=== PATIENT | male | born 1985 | race Caucasian/White ===

== ENCOUNTER 2024-06-02 19:13 | Inpatient (IN) | payer OTHER, SELFPAY ==
[2024-06-02 19:30] VITALS: BP 147/89; PULSE 58; RESP 16; TEMP 36.4; O2SAT 96
[2024-06-02 19:35] VITALS: BMI 21.1
--- NOTE | 2024-06-03 03:09 | PC.ADMIT ---
Sd is a 38 y/o male who was admitted to [facility] at 1930 from [facility] on a CV for treatment of depression and adjustment disorder.? Per crisis and evaluation and pt. Pt was admitted d/t SI w/ an intentional OD. Pt denied that it was an SI attempt but rather ?just wanted to sleep for 2 days after a bad day?.? Pt took 20 300mg of gabapentin and 6 50 mg trazodone, no charcoal was given at the hospital.? Pt was lethargic but was arousable. Pt was A&Ox4. Pt was pleasant, calm and cooperative with the admission process.Pt reported SI attempt was d/t increasing depression. Pt K+ level 3.4. Recent stressors include a daughter going back home to her mother, recent job loss from being arrested d/t prior warrants, and having to walk a long distance after being released from senior living. Mood is variable. Affect is sad. Pt denied AVH. Thought process was linear, regular prosody of speech. Pt denied SI or HI at this time. Focus was normal. Current smoker, reports smoking a pack a day. Pt reported daily marijuana use. Tox Screen was positive for cannabis and cocaine. Last use of cocaine was 2 days ago. Pt has a hx of nephrolithiasis. Pt has a hx of trauma which induces nightmares, hypervigilance and avoidance. Pt EKG was normal sinus rhythm and a QTC of 482. Pt was placed on 15 checks for safety. Pt was cooperative with skin check, no visible wounds or bruises. NKA. Pt would like to be set up with a psychiatric provider once d/c.
[2024-06-03 07:00] VITALS: BMI 21.0
[2024-06-03 07:58] VITALS: BP 128/75; PULSE 49; RESP 16; TEMP 36.9; O2SAT 97
[2024-06-03] MEDS: Gabapentin 300 MG CAPSULE PO ×2 (09:13→15:54)
[2024-06-03] MEDS: Multivitamin TABLET 1 TAB PO (09:13)
[2024-06-03 09:22] LABS: Estimated Average Glucose 94 mg/dL; Hemoglobin A1c % 4.9 % (<6.0)
[2024-06-03] MEDS: Nicotine 21 MG PATCH.TD24 TRANSDERMA (09:33)
[2024-06-03 09:36] LABS: Cholesterol 149 mg/dL (<200); HDL Cholesterol 45 mg/dL (>40); LDL Cholesterol Calculated 82 mg/dL (<100); Magnesium 2.1 mg/dL (1.6-2.6); Triglycerides 110 mg/dL (<150)
[2024-06-03 09:52] LABS: Free T4 (Free Thyroxine) 0.85 ng/dL (0.71-1.85); Thyroid Stimulating Hormone 1.14 uIU/mL (0.32-4.0)
[2024-06-03 10:04] LABS: Folate 5.4 ng/mL (> or = 4.0); Vitamin B12 282 pg/mL (200-900)
[2024-06-03] MEDS: Sertraline HCL 25 MG TABLET PO (15:54)
--- NOTE | 2024-06-03 16:01 | P.CONHOSP_ITS ---
History of Present Illness Data of Consult Service Date: 06/03/24 Primary Care Provider: Unknown Physician HPI Reason for consult: Admission H&P Pt is a 38-year-old male with a PMH significant for recurrent nephrolithiasis, right shoulder tendenitis, hx of bradycardia, polysubstance use disorder, hx of intubation in 07/2023?due to extreme agitation after toxic ingestion of amitriptyline, PTSD, and depression who is admitted to psychiatry unit for increasing depression with SI. Patient presented to [facility] ED after reported intentional overdose of 20 tablets of 300 mg gabapentin and 6 tablets of 50 mg trazodone. Medical consult for admission H&P. Patient currently denies any acute medical complaints at this time. No shortness a breath or difficulty breathing. Denies chest pain/pressure palpitations. No fever, chills, nausea, vomiting, abdominal pain. No headache or acute vision changes. Denies flank or lower back pain. No dysuria or polyuria. Reports regularly follows with PCP, last visit 3 months ago. Review of Systems Review of Systems: Patient has no acute medical complaints at this time [facility] Medical History (Updated 06/03/24 @ 17:03 by JUAN LUIS Thomas) Bradycardia Polysubstance use disorder Left shoulder tendinitis Depression PTSD (post-traumatic stress disorder) Recurrent nephrolithiasis Social History Household Members: Family Housing: Apartment Do you presently have visiting nurse or other home services: No Patient Tobacco Use Status: Current everyday Tobacco user Tobacco use type: Cigarette Cigarette Packs Per Day: 1 Cigarettes Per Day: 20.0 Smoked in Last 30 Days: Yes e-Cigarette/Vaping Use: Never Used Patient Interested in Nicotine Replacement: Yes Patient Given Instructions on How to Stop Smoking: Yes Date Education Initiated: 06/03/24 Second Hand Smoke Exposure: No Use of substances other than those prescribed or required for medical reasons: Yes Substance Use Type: Crack/Cocaine and Prescription Drugs Substance Use Frequency: Occasionally Last Used Substance: Days (ago) Currently Displaying Signs/Symptoms of Drug Intoxication Withdrawal: No Any prior treatment program specific to substance use: Yes Have you been hit, kicked, punched, or otherwise hurt by someone within the past year? If so, by whom?: No Do you feel safe in your current relationship?: No Current Relationship Is there a partner from a previous relationship who is making you feel unsafe now?: No Are you made to feel afraid or neglected: No Advance Directives: No Advance Directives Information Provided: No Do you have thoughts of harming others: None Do you have a plan to hurt others: No Plan Recently lost weight without trying: Unsure Eating poorly because of decreased appetite: No Nutrition Risks: No Nutritional Risk Poor oral hygiene: No Meds Allergies Allergy/AdvReac Type Severity Reaction Status Date / Time No Known Allergies Allergy Verified 06/02/24 21:07 Active Medications: Current Medications Acetaminophen (Acetaminophen 325 Mg Tablet) 650 mg PO Q6H PRN PRN Reason: Headache/Pain Mild Scale (1-3) Al Hydroxide/Mg Hydroxide (Magnesium Hydrox/Alum Hydrox 30 Ml Oral.Susp) 30 ml PO Q6H PRN PRN Reason: Heartburn/Nausea Gabapentin (Gabapentin 300 Mg Capsule) 300 mg PO TID [facility] Last Admin: 06/03/24 15:54 Dose: 300 mg Hydroxyzine HCl (Hydroxyzine Hcl 25 Mg Tablet) 25 mg PO Q6H PRN PRN Reason: Anxiety Magnesium Hydroxide (Milk Of Magnesia 30 Ml Oral.Susp) 30 ml PO DAILY PRN PRN Reason: Constipation Multivitamins/Vitamin C (Multivitamin Tablet) 1 tab PO DAILY [facility] Last Admin: 06/03/24 09:13 Dose: 1 tab Nicotine (Nicotine 21 Mg Patch.Td24) 21 mg TRANSDERMA DAILY PRN PRN Reason: nicotine cravings Last Admin: 06/03/24 09:33 Dose: 21 mg Nicotine Polacrilex (Nicotine Polacrilex 2 Mg Gum) 4 mg BUCCAL Q2H PRN PRN Reason: Nicotine Cravings Non-Formulary Medication (Cetirizine-Pseudoephedrine) 1 tab PO BID [facility] Sertraline HCl (Sertraline Hcl 50 Mg Tablet) 50 mg PO DAILY [facility] Trazodone HCl (Trazodone Hcl 50 Mg Tablet) 50 mg PO BEDTIME [facility] Home Medications ?Medication ?Instructions ?Recorded ?Confirmed ?Last Taken ?Type cetirizine 5 mg-pseudoephedrine ER 1 tab PO BID 06/02/24 06/02/24 06/01/24 History 120 mg tablet,extended release,12hr gabapentin 300 mg capsule 300 mg PO TID 06/02/24 06/02/24 06/01/24 History multivitamin 1 tab PO DAILY 06/02/24 06/02/24 06/01/24 History trazodone 50 mg tablet 50 mg PO BEDTIME 06/02/24 06/02/24 06/01/24 History Physical Exam Vital Signs and Narrative: Vital Signs: Last Vital Signs Temp 98.4 F 06/03/24 07:58 Pulse 49 L 06/03/24 07:58 Resp 16 06/03/24 07:58 BP 128/75 06/03/24 07:58 Pulse Ox 97 06/03/24 07:58 O2 Del Method Room Air 06/03/24 07:58 BMI result Body Mass Index 21.0 General: AOx3, no acute distress Resp: CTA bilaterally CVS: S1, S2, regular rate, bradicardic GI: +BS, NT, no distention Skin: Warm, dry Neuro: Cranial nerves II-XII grossly intact bilaterally. Motor grossly intact bilaterally Extremities: No edema Results Labs Labs: Laboratory Results - last 24 hr 06/03/24 08:54 Estimat Average Glucose 94 Hemoglobin A1c % 4.9 Magnesium 2.1 Triglycerides 110 Cholesterol 149 LDL Cholesterol, Calc 82 HDL Cholesterol 45 Vitamin B12 282 Folate 5.4 TSH 1.14 Free T4 0.85 Assessment and Plan (1) Medical clearance for psychiatric admission: Status: Acute Plan Pt is a 38-year-old male with a PMH significant for recurrent nephrolithiasis, right shoulder tendenitis, hx of bradycardia, polysubstance use disorder, hx of intubation in 07/2023?due to extreme agitation after toxic ingestion of amitriptyline, PTSD, and depression who is admitted to M3 psychiatry unit for increasing depression with SI. Patient presented to [facility] ED after reported intentional overdose of 20 tablets of 300 mg gabapentin and 6 tablets of 50 mg trazodone. Medical consult for admission H&P. Mood disorder Plan as per psychiatry Right shoulder tendonitis Continue gabapentin Polysubstance use disorder Reports last used cocaine 3 days ago Plan as per Psychiatry Insomnia Continue trazodone Thank you for allowing us to participate in the care of this patient. Signing off at this time. Please re-consult if any acute complaints or issues arise.
[2024-06-03 19:42] VITALS: BP 134/73; PULSE 50; RESP 16; TEMP 37; O2SAT 99
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
[2024-06-03] MEDS: hydrOXYzine HCL 25 MG TABLET PO (21:34)
[2024-06-03] MEDS: Acetaminophen 325 MG TABLET 650 MG PO (21:34)
[2024-06-04 07:50] VITALS: BP 132/86; PULSE 46; RESP 14; TEMP 36.6; O2SAT 98
[2024-06-04] MEDS: Sertraline HCL 50 MG TABLET PO (09:22)
[2024-06-04] MEDS: Multivitamin TABLET 1 TAB PO (09:22)
[2024-06-04] MEDS: Nicotine 21 MG PATCH.TD24 TRANSDERMA (09:29)
--- NOTE | 2024-06-04 17:41 | P.PNPSI_ITS ---
Subjective Subjective Date of Service: 06/04/24 Reason For Visit: Opiois use disorder, PTSD Interim History: poor sleep 2/2 snoring roommate. would like to restart trazodone, also given a repeat PRN. no other requests or complaints. per staff, slept all NOC. no notable events or behaviors. Mental Status Exam Mental Status Exam Narrative: adequately dressed and groomed, restless, cooperative. guttural tics. speech nml rate, amount, loudness, latency. abnormality in speech 2/2 of dentures. thoughts linear and logical without paranoia or delusions. affect constricted, normo-intense, non-labile. mood all right. denies SI/SIBI/HI/AVH. Diagnostics Vital Signs (24Hr): Vital Signs - 24 hr 06/03/24 19:42 06/04/24 07:50 Temperature 98.6 F 97.8 F Pulse Rate 50 46 L Respiratory Rate 16 14 Blood Pressure 134/73 132/86 Pulse Oximetry 99 98 Oxygen Delivery Method Room Air Room Air BMI result Body Mass Index 21.0 Labs Labs: Laboratory Results - last 48 hr 06/03/24 08:54 Estimat Average Glucose 94 Hemoglobin A1c % 4.9 Magnesium 2.1 Triglycerides 110 Cholesterol 149 LDL Cholesterol, Calc 82 HDL Cholesterol 45 Vitamin B12 282 Folate 5.4 TSH 1.14 Free T4 0.85 Medications Medications Current Medications Acetaminophen (Acetaminophen 325 Mg Tablet) 650 mg PO Q6H PRN PRN Reason: Headache/Pain Mild Scale (1-3) Last Admin: 06/03/24 21:34 Dose: 650 mg Al Hydroxide/Mg Hydroxide (Magnesium Hydrox/Alum Hydrox 30 Ml Oral.Susp) 30 ml PO Q6H PRN PRN Reason: Heartburn/Nausea Gabapentin (Gabapentin 300 Mg Capsule) 300 mg PO TID [facility] Last Admin: 06/03/24 15:54 Dose: 300 mg Hydroxyzine HCl (Hydroxyzine Hcl 25 Mg Tablet) 25 mg PO Q6H PRN PRN Reason: Anxiety Last Admin: 06/03/24 21:34 Dose: 25 mg Magnesium Hydroxide (Milk Of Magnesia 30 Ml Oral.Susp) 30 ml PO DAILY PRN PRN Reason: Constipation Multivitamins/Vitamin C (Multivitamin Tablet) 1 tab PO DAILY [facility] Last Admin: 06/04/24 09:22 Dose: 1 tab Nicotine (Nicotine 21 Mg Patch.Td24) 21 mg TRANSDERMA DAILY PRN PRN Reason: nicotine cravings Last Admin: 06/04/24 09:29 Dose: 21 mg Nicotine Polacrilex (Nicotine Polacrilex 2 Mg Gum) 4 mg BUCCAL Q2H PRN PRN Reason: Nicotine Cravings Sertraline HCl (Sertraline Hcl 50 Mg Tablet) 50 mg PO DAILY [facility] Last Admin: 06/04/24 09:22 Dose: 50 mg Trazodone HCl (Trazodone Hcl 50 Mg Tablet) 50 mg PO BEDTIME [facility] Trazodone HCl (Trazodone Hcl 50 Mg Tablet) 50 mg PO BEDTIME PRN PRN Reason: insomnia Allergies Allergies Allergy/AdvReac Type Severity Reaction Status Date / Time No Known Allergies Allergy Verified 06/02/24 21:07 Assessment & Plan Assessment & Plan (1) Chronic post-traumatic stress disorder (PTSD): Status: Acute Code(s): F43.12 - Post-traumatic stress disorder, chronic (2) Depressive disorder: Status: Acute Code(s): F32.A - Depression, unspecified (3) Opioid use disorder: Status: Acute Code(s): F11.90 - Opioid use, unspecified, uncomplicated (4) Cocaine use disorder: Status: Acute Code(s): F14.10 - Cocaine abuse, uncomplicated (5) Nicotine use disorder: Status: Acute Code(s): F17.200 - Nicotine dependence, unspecified, uncomplicated Plan 06/03: continue home medications. start SSRI - sertraline. refer for outpt mental health services. T/C neuroleptic for tic disorder. 06/04: pt reports tic is a response to dry throat caused by dentures, never had it prior to dentures. no questions or complaints, content to continue on present regimen with aftercare referrals. Reason for continued inpatient stay Substantial Risk for: harm to self, inability to function and rapid decompensation Time Spent With Patient Time: Total time managing care of this patient today __25__ minutes.
[2024-06-04 19:58] VITALS: BP 143/80; PULSE 48; RESP 16; TEMP 37; O2SAT 98
[2024-06-04] MEDS: hydrOXYzine HCL 25 MG TABLET PO (22:14)
[2024-06-04] MEDS: traZODone HCL 50 MG TABLET PO (22:14)
[2024-06-05] MEDS: Multivitamin TABLET 1 TAB PO (09:07)
[2024-06-05] MEDS: Sertraline HCL 50 MG TABLET PO (09:07)
[2024-06-05] MEDS: Nicotine 21 MG PATCH.TD24 TRANSDERMA (09:09)
--- NOTE | 2024-06-05 17:32 | P.PNPSI_ITS ---
Subjective Subjective Date of Service: 06/05/24 Reason For Visit: Opiois use disorder, PTSD Interim History: calm, cooperative. no complaints or requests. agreeable to DC friday. per staff, isolative, poor sleep. disengaged. slept 10 hours but says he did not sleep well. Mental Status Exam Mental Status Exam Narrative: adequately dressed and groomed, restless, cooperative. guttural tics. speech nml rate, amount, loudness, latency. abnormality in speech 2/2 of dentures. thoughts linear and logical without paranoia or delusions. affect constricted, normo-intense, non-labile. mood all right. denies SI/SIBI/HI/AVH. Diagnostics Vital Signs (24Hr): Vital Signs - 24 hr 06/04/24 19:58 Temperature 98.6 F Pulse Rate 48 L Respiratory Rate 16 Blood Pressure 143/80 H Pulse Oximetry 98 Oxygen Delivery Method Room Air BMI result Body Mass Index 21.0 Medications Medications Current Medications Acetaminophen (Acetaminophen 325 Mg Tablet) 650 mg PO Q6H PRN PRN Reason: Headache/Pain Mild Scale (1-3) Last Admin: 06/03/24 21:34 Dose: 650 mg Al Hydroxide/Mg Hydroxide (Magnesium Hydrox/Alum Hydrox 30 Ml Oral.Susp) 30 ml PO Q6H PRN PRN Reason: Heartburn/Nausea Gabapentin (Gabapentin 300 Mg Capsule) 300 mg PO TID [facility] Last Admin: 06/03/24 15:54 Dose: 300 mg Hydroxyzine HCl (Hydroxyzine Hcl 25 Mg Tablet) 25 mg PO Q6H PRN PRN Reason: Anxiety Last Admin: 06/04/24 22:14 Dose: 25 mg Magnesium Hydroxide (Milk Of Magnesia 30 Ml Oral.Susp) 30 ml PO DAILY PRN PRN Reason: Constipation Multivitamins/Vitamin C (Multivitamin Tablet) 1 tab PO DAILY [facility] Last Admin: 06/05/24 09:07 Dose: 1 tab Nicotine (Nicotine 21 Mg Patch.Td24) 21 mg TRANSDERMA DAILY PRN PRN Reason: nicotine cravings Last Admin: 06/05/24 09:09 Dose: 21 mg Nicotine Polacrilex (Nicotine Polacrilex 2 Mg Gum) 4 mg BUCCAL Q2H PRN PRN Reason: Nicotine Cravings Sertraline HCl (Sertraline Hcl 50 Mg Tablet) 50 mg PO DAILY [facility] Last Admin: 06/05/24 09:07 Dose: 50 mg Trazodone HCl (Trazodone Hcl 50 Mg Tablet) 50 mg PO BEDTIME [facility] Last Admin: 06/04/24 22:14 Dose: 50 mg Trazodone HCl (Trazodone Hcl 50 Mg Tablet) 50 mg PO BEDTIME PRN PRN Reason: insomnia Allergies Allergies Allergy/AdvReac Type Severity Reaction Status Date / Time No Known Allergies Allergy Verified 06/02/24 21:07 Assessment & Plan Assessment & Plan (1) Chronic post-traumatic stress disorder (PTSD): Status: Acute Code(s): F43.12 - Post-traumatic stress disorder, chronic (2) Depressive disorder: Status: Acute Code(s): F32.A - Depression, unspecified (3) Opioid use disorder: Status: Acute Code(s): F11.90 - Opioid use, unspecified, uncomplicated (4) Cocaine use disorder: Status: Acute Code(s): F14.10 - Cocaine abuse, uncomplicated (5) Nicotine use disorder: Status: Acute Code(s): F17.200 - Nicotine dependence, unspecified, uncomplicated Plan 06/03: continue home medications. start SSRI - sertraline. refer for outpt mental health services. T/C neuroleptic for tic disorder. 06/04: pt reports tic is a response to dry throat caused by dentures, never had it prior to dentures. no questions or complaints, content to continue on present regimen with aftercare referrals. 06/05: c/o poor sleep again. feeling comfortable with present plan, however. planning to DC friday. Reason for continued inpatient stay Substantial Risk for: harm to self Time Spent With Patient Time: Total time managing care of this patient today ____ minutes.
[2024-06-05] MEDS: Acetaminophen 325 MG TABLET 650 MG PO (18:02)
[2024-06-05 20:00] VITALS: BP 133/65; PULSE 43; RESP 16; TEMP 36.8; O2SAT 98
[2024-06-05] MEDS: traZODone HCL 50 MG TABLET PO (22:26)
[2024-06-06 07:47] VITALS: BP 124/70; PULSE 49; RESP 14; TEMP 36.7; O2SAT 99
[2024-06-06] MEDS: Nicotine 21 MG PATCH.TD24 TRANSDERMA (09:01)
[2024-06-06] MEDS: Multivitamin TABLET 1 TAB PO (09:01)
[2024-06-06] MEDS: Sertraline HCL 50 MG TABLET PO (09:01)
[2024-06-06] MEDS: Gabapentin 300 MG CAPSULE PO ×2 (15:28→21:54)
--- NOTE | 2024-06-06 17:03 | P.PNPSI_ITS ---
Subjective Subjective Date of Service: 06/06/24 Reason For Visit: Opiois use disorder, PTSD Interim History: feeling well. no issues. discharging tomorrow. per staff, broad affect, visible. calm, pleasant, cooperative. taking meds. denies dep/anx. slept 7 hours. Mental Status Exam Mental Status Exam Narrative: adequately dressed and groomed, restless, cooperative. guttural tics. speech nml rate, amount, loudness, latency. abnormality in speech 2/2 of dentures. thoughts linear and logical without paranoia or delusions. affect constricted, normo-intense, non-labile. mood all right. denies SI/SIBI/HI/AVH. Diagnostics Vital Signs (24Hr): Vital Signs - 24 hr 06/05/24 20:00 06/06/24 07:47 Temperature 98.3 F 98.0 F Pulse Rate 43 L 49 L Respiratory Rate 16 14 Blood Pressure 133/65 124/70 Pulse Oximetry 98 99 Oxygen Delivery Method Room Air Room Air BMI result Body Mass Index 21.0 Medications Medications Current Medications Acetaminophen (Acetaminophen 325 Mg Tablet) 650 mg PO Q6H PRN PRN Reason: Headache/Pain Mild Scale (1-3) Last Admin: 06/05/24 18:02 Dose: 650 mg Al Hydroxide/Mg Hydroxide (Magnesium Hydrox/Alum Hydrox 30 Ml Oral.Susp) 30 ml PO Q6H PRN PRN Reason: Heartburn/Nausea Gabapentin (Gabapentin 300 Mg Capsule) 300 mg PO TID [facility] Last Admin: 06/06/24 15:28 Dose: 300 mg Hydroxyzine HCl (Hydroxyzine Hcl 25 Mg Tablet) 25 mg PO Q6H PRN PRN Reason: Anxiety Last Admin: 06/04/24 22:14 Dose: 25 mg Magnesium Hydroxide (Milk Of Magnesia 30 Ml Oral.Susp) 30 ml PO DAILY PRN PRN Reason: Constipation Multivitamins/Vitamin C (Multivitamin Tablet) 1 tab PO DAILY [facility] Last Admin: 06/06/24 09:01 Dose: 1 tab Nicotine (Nicotine 21 Mg Patch.Td24) 21 mg TRANSDERMA DAILY PRN PRN Reason: nicotine cravings Last Admin: 06/06/24 09:01 Dose: 21 mg Nicotine Polacrilex (Nicotine Polacrilex 2 Mg Gum) 4 mg BUCCAL Q2H PRN PRN Reason: Nicotine Cravings Sertraline HCl (Sertraline Hcl 50 Mg Tablet) 50 mg PO DAILY [facility] Last Admin: 06/06/24 09:01 Dose: 50 mg Trazodone HCl (Trazodone Hcl 50 Mg Tablet) 50 mg PO BEDTIME [facility] Last Admin: 06/05/24 22:26 Dose: 50 mg Trazodone HCl (Trazodone Hcl 50 Mg Tablet) 50 mg PO BEDTIME PRN PRN Reason: insomnia Allergies Allergies Allergy/AdvReac Type Severity Reaction Status Date / Time No Known Allergies Allergy Verified 06/02/24 21:07 Assessment & Plan Assessment & Plan (1) Chronic post-traumatic stress disorder (PTSD): Status: Acute Code(s): F43.12 - Post-traumatic stress disorder, chronic (2) Depressive disorder: Status: Acute Code(s): F32.A - Depression, unspecified (3) Opioid use disorder: Status: Acute Code(s): F11.90 - Opioid use, unspecified, uncomplicated (4) Cocaine use disorder: Status: Acute Code(s): F14.10 - Cocaine abuse, uncomplicated (5) Nicotine use disorder: Status: Acute Code(s): F17.200 - Nicotine dependence, unspecified, uncomplicated Plan 06/03: continue home medications. start SSRI - sertraline. refer for outpt mental health services. T/C neuroleptic for tic disorder. 06/04: pt reports tic is a response to dry throat caused by dentures, never had it prior to dentures. no questions or complaints, content to continue on present regimen with aftercare referrals. 06/05: c/o poor sleep again. feeling comfortable with present plan, however. planning to DC friday. 06/06: no issues. DC tomorrow. stable. Reason for continued inpatient stay Substantial Risk for: inability to function and rapid decompensation Time Spent With Patient Time: Total time managing care of this patient today ____ minutes.
[2024-06-06 21:49] VITALS: BP 131/78; PULSE 50; RESP 16; TEMP 36.9; O2SAT 95
[2024-06-06] MEDS: traZODone HCL 50 MG TABLET PO (21:54)
[2024-06-07 08:05] VITALS: BP 117/70; PULSE 47; RESP 16; TEMP 37.1; O2SAT 98
[2024-06-07] MEDS: Sertraline HCL 50 MG TABLET PO (08:34)
[2024-06-07] MEDS: Gabapentin 300 MG CAPSULE PO (08:34)
[2024-06-07] MEDS: Multivitamin TABLET 1 TAB PO (08:34)
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
[2024-06-07] MEDS: Nicotine 21 MG PATCH.TD24 TRANSDERMA (10:13)
== END 2024-06-07 11:03 | disposition home or self-care (01) | DRG 754 ==
PROVIDERS: Clinical Nurse Specialist Psychiatric/Mental Health, Adult; Admitting Provider Social Worker; Visit Provider Psychiatry & Neurology Psychiatry
DX: F32.A Depression, unspecified (principal); F14.10 Cocaine abuse, uncomplicated; F17.210 Nicotine dependence, cigarettes, uncomplicated; F19.90 Other psychoactive substance use, unspecified, uncomplicated; F43.12 Post-traumatic stress disorder, chronic; F95.9 Tic disorder, unspecified; G47.00 Insomnia, unspecified; M77.8 Other enthesopathies, not elsewhere classified; Z71.6 Tobacco abuse counseling; Z62.810 Personal history of physical and sexual abuse in childhood; Z79.899 Other long term (current) drug therapy
CPT/HCPCS: 36415; 80061; 82607; 82746; 83036; 83735; 84439; 84443

== ENCOUNTER → 2024-06-02 19:13 | Outpatient (BNV) | payer MEDICAID, SELFPAY | PROVIDERS: Admitting Provider Social Worker; Visit Provider Student in an Organized Health Care Education/Training Program | DX: Z02.2 Encounter for examination for admission to residential institution (principal) | CPT/HCPCS: 99429 ==

== ENCOUNTER → 2024-06-02 19:13 | Outpatient (BNV) | payer OTHER, SELFPAY | PROVIDERS: Admitting Provider Social Worker; Visit Provider Psychiatry & Neurology Psychiatry | DX: F32.2 Major depressive disorder, single episode, severe without psychotic features (principal); F14.10 Cocaine abuse, uncomplicated; F11.90 Opioid use, unspecified, uncomplicated; F43.12 Post-traumatic stress disorder, chronic; F17.200 Nicotine dependence, unspecified, uncomplicated | CPT/HCPCS: 99231; 99232; 99233 ==